=== PATIENT | male | born 1970 | race Caucasian/White ===

== ENCOUNTER → 2021-11-28 | Outpatient (CLI) | payer OTHER ==
--- NOTE | 2021-11-28 14:40 | Diagnostic Imaging Report ---
CT CHEST WO TECHNIQUE: Multiple contiguous axial images were obtained through the chest without the use of intravenous contrast. All CT scans use one or more of the following dose optimizing techniques: Automated exposure control, MA and/or KvP adjustment based on a patient size and exam type, or iterative reconstruction. INDICATION: Pulmonary nodule. COMPARISON: None available. FINDINGS: Lungs and airway: No abnormality of the trachea. There is no pneumonia or edema. No suspicious pulmonary nodules are present. Pleura: No pleural effusion or pneumothorax. Heart and mediastinum: Thyroid is normal. No supraclavicular or axillary lymphadenopathy. No mediastinal or hilar lymphadenopathy. The heart is normal in size without pericardial effusion. Normal-caliber thoracic aorta. Upper abdomen: Cholelithiasis. No acute abnormality in the upper abdomen. Musculoskeletal: No worrisome focal osseous lesions. IMPRESSION: 1. No pulmonary consolidation or nodule. 2. Cholelithiasis. Dictated by: Dictated on workstation # [id number]
== END ==
LOC: RAD 11:01
PROVIDERS: ATTEND Emergency Medicine
DX: K80.20 Calculus of gallbladder without cholecystitis without obstruction (principal); R91.1 Solitary pulmonary nodule
CPT/HCPCS: 71250

== ENCOUNTER → 2023-03-17 | Outpatient (CLI) | payer OTHER ==
--- NOTE | 2023-03-17 10:57 | Diagnostic Imaging Report ---
PROCEDURE: CT chest without contrast. TECHNIQUE: Multiple contiguous axial images were obtained through the chest without the use of intravenous contrast. Auto Exposure Controls were utilized during the CT exam to meet ALARA standards for radiation dose reduction. INDICATION: Abnormal CT scan of chest with left lower lobe opacity. COMPARISON: 11/28/2021 FINDINGS: There is no evidence of pulmonary mass or infiltrate. No significant pleural or pericardial fluid is identified. There is minimal groundglass density in the subpleural regions bilaterally which may be due to mild atelectasis or pneumonitis. Subcentimeter mediastinal lymph nodes are present without evidence of significant change. There is mild thoracic spondylosis. Upper abdominal sections reveal cholelithiasis similar to previous study. There is no evidence of associated inflammation. IMPRESSION: Mild subpleural atelectasis and/or pneumonitis in both lungs without evidence of mass, infiltrate or other adverse change. Dictated by: Dictated on workstation # [id number]
== END ==
LOC: RAD 09:00
PROVIDERS: ATTEND Emergency Medicine
DX: R91.8 Other nonspecific abnormal finding of lung field (principal)
CPT/HCPCS: 71250